=== PATIENT | female | born 1980 | race American Indian/Alaskan Native ===

== ENCOUNTER 2016-12-29 21:22 | Outpatient (CLI) | payer MEDICAID ==
[2016-12-29] MEDS ORDERED: LACTATED RINGERS 500 ML IV ONE (22:10)
[2016-12-29 22:56] LABS: Bacteria,Urine 2+ /HPF (Negative); Bilirubin,Urine NEG (Negative); Blood,Urine NEG (Negative); Ketones,Urine NEG (Negative); Leukocyte Esterase,Urine LG (Negative); Mucus,Urine FEW /HPF; Nitrite,Urine NEG (Negative); Protein,Urine <15 mg/dL mg/dL (Negative); Urobilinogen,Urine < 2.0 mg/dL (<2.0)
[2016-12-29 23:47] VITALS: BP 95/55
== END 2016-12-29 23:13 | disposition left against medical advice (07) ==
LOC: TRG 21:22
PROVIDERS: ATTEND Obstetrics & Gynecology
DX: O09.523 Supervision of elderly multigravida, third trimester (principal); O47.03 False labor before 37 completed weeks of gestation, third trimester; Z3A.31 31 weeks gestation of pregnancy
CPT/HCPCS: 59025; 81001; J7120

== ENCOUNTER 2017-02-03 05:04 | Outpatient (CLI) | payer MEDICAID ==
[2017-02-03] MEDS ORDERED: LACTATED RINGERS 1,000 ML ONE (05:37)
[2017-02-03 12:17] VITALS: BP 103/70
== END 2017-02-03 06:40 | disposition home or self-care (01) ==
LOC: TRG 05:04
PROVIDERS: ATTEND Obstetrics & Gynecology
DX: O09.523 Supervision of elderly multigravida, third trimester (principal); O62.9 Abnormality of forces of labor, unspecified; Z3A.36 36 weeks gestation of pregnancy
CPT/HCPCS: J7120